=== PATIENT | female | born 1985 | race Two or more races ===

== ENCOUNTER 2023-01-12 15:28 | Emergency (ER) | payer OTHER ==
[~2023-01-12] VITALS: Ht 175.3 cm; Wt 83.9 kg
== END 2023-01-12 22:13 | disposition home or self-care (01) ==
LOC: ER 15:28 → EMR PED 15:41 → ER 15:41
DX: R10.31 Right lower quadrant pain (principal)

== ENCOUNTER 2024-06-03 19:35 | Emergency (ER) | payer OTHER ==
[~2024-06-03] VITALS: Ht 175.3 cm; Wt 72.6 kg
[2024-06-03] MEDS ORDERED: LORazepam 2 MG/ML VIAL IV ONE (22:15)
[2024-06-03] MEDS ORDERED: 0.9 % SODIUM CHLORIDE 1,000 ML IV ONE (22:15)
[2024-06-03] MEDS ORDERED: LORazepam 2 MG/ML VIAL ONE (22:49)
[2024-06-03 23:18] LABS: HEMATOCRIT 39.3 % (36.0-45.00); HEMOGLOBIN 12.8 g/dL (12.0-15.00); MEAN CORPUSCULAR HEMOGLOBIN 27.7 pg (27.00-32.0); MEAN CORPUSCULAR HGB CONC 32.6 g/dl (32.0-36.0); PLATELET COUNT 304 K/uL (150-450); RED BLOOD COUNT 4.62 M/uL (4.00-6.00); RED CELL DISTRIBUTION WIDTH 13.9 % (11.5-14.5)
[2024-06-03 23:35] LABS: CALCIUM 9.3 mg/dL (8.5-10.1); CREATININE SERUM 0.8 mg/dL (0.55-1.02); GFR 79.85; POTASSIUM 3.98 mEq/L (3.5-5.1)
== END 2024-06-04 00:31 | disposition home or self-care (01) ==
LOC: ER 19:36
PROVIDERS: General Practice
DX: R20.0 Anesthesia of skin (principal); F14.10 Cocaine abuse, uncomplicated; R53.81 Other malaise